=== PATIENT | female | born 1985 | race Caucasian/White ===

== ENCOUNTER → 2022-09-04 11:39 | Outpatient (CLI) | payer OTHER, SELFPAY ==
--- NOTE | 2022-09-04 11:42 | DI.MRI.S_ITS ---
PROCEDURE: MR ANKLE LT WO CON INDICATIONS: Laceration of left Achilles tendon, sequela TECHNIQUE: Noncontrast sagittal T1 spin echo and T2 fast spin echo with fat saturation, axial proton density fast spin echo and T2 fast spin echo with fat saturation, coronal T1 spin echo and T2 fast spin echo with fat saturation through the ankle/hindfoot. COMPARISON: None. FINDINGS: Image quality: Excellent. Bones and joints: No bone marrow contusions or fractures. No hindfoot coalitions. No osteochondral injuries of the talar dome. Small amount of tibiotalar and subtalar joint effusion is noted, no gross loose bodies. Medial structures: The posterior tibialis, flexor digitorum longus, and flexor hallucis longus tendons are intact. Small amount of fluid distending posterior tibialis tendon sheath is seen. The posterior tibial neurovascular bundle appears normal within the tarsal tunnel, without extrinsic mass effect. The deep layer (anterior and posterior tibiotalar ligaments) and superficial layer (tibionavicular, tibiospring, and tibiocalcaneal ligaments) of the deltoid ligament appear normal. The spring ligament components (superomedial calcaneonavicular, medioplantar oblique calcaneonavicular, and inferoplantar longitudinal ligaments) are intact. Lateral structures: The anterior talofibular, calcaneofibular, and posterior talofibular ligaments appear intact. More superiorly, the anterior and posterior tibiofibular ligaments appear intact, as is the intermalleolar ligament. The tibiofibular syndesmosis is normal in width at 2 mm or less. The peroneus longus and brevis tendons demonstrate normal location and morphology. Adjacent bony peroneal tubercle and retrotrochlear prominence are normal in size. The sinus tarsi demonstrates normal fatty signal, without edema, fibrosis, or cyst formation. Visualized sinus tarsi components (cervical ligament, interosseous talocalcaneal ligament, roots of the inferior extensor retinaculum) appear normal. The calcaneonavicular and calcaneocuboid components of the bifurcate ligament appear intact. The dorsal calcaneocuboid ligament appears intact. Anterior structures: The tibialis anterior, extensor hallucis longus, and extensor digitorum longus tendons appear intact. The dorsal talonavicular ligament appears intact. Posterior and plantar structures: Markedly thickened distal 7 cm segment of Achilles tendon approximately 2 cm from its posterior calcaneal insertion is seen and show intrasubstance T2 hyperintense signal. Maximum diameter of Achilles tendon measures 1.7 x 1.6 cm in transverse and AP diameters. No full-thickness Achilles tendon rupture. Medial and lateral bands of the plantar fascia are of normal thickness. No abductor digiti quinti muscle atrophy to suggest Meyer neuropathy. IMPRESSION: 1. Tendinosis and moderate grade intrasubstance partial-thickness tear involving distal 7 cm segment of Achilles tendon approximately 2 cm from its posterior calcaneal insertion. No full-thickness Achilles tendon rupture. Plantar fascia is within normal limits. 2. No marrow edema. No fracture or dislocation. No osteochondral injuries of talar dome. Small joint effusion, no loose bodies. 3. Low-grade tenosynovitis involving posterior tibialis tendon. Rest of the flexor tendons, extensor tendons and peroneus tendons are intact. 4. Medial and lateral ankle ligaments are intact. Dictated by: Bill Castellon M.D. on 09/04/2022 at 16:44 Approved by: Bill Castellon M.D. on 09/04/2022 at 16:52
== END ==
PROVIDERS: Referring Provider Orthopaedic Surgery Foot and Ankle Surgery; Visit Provider Orthopaedic Surgery Foot and Ankle Surgery
DX: S86.02 Laceration of Achilles tendon (principal); S86.012A Strain of left Achilles tendon, initial encounter; M65.862 Other synovitis and tenosynovitis, left lower leg; X58.XXXA Exposure to other specified factors, initial encounter
CPT/HCPCS: 73721

== ENCOUNTER 2023-03-06 08:57 | Day surgery (SDC) | payer OTHER, SELFPAY ==
[2023-02-23 11:23] VITALS: BMI 34.6
[2023-03-06] VITALS (7 sets, daily range): BP systolic 127–156; BP diastolic 77–95; PULSE 67–97; RESP 12–16; TEMP 36.2–36.8; O2SAT 99–100; BMI 33.3
[2023-03-06] MEDS: LACTATED RINGERS 1,000 ML 42 ML IV (09:26)
--- NOTE | 2023-03-06 10:42 | PM.PREOP ---
Pre-operative Note Interval Note History & Physical reviewed/Exam performed by Physician: Yes Changes to H&P: No
[2023-03-06] MEDS: CEFAZOLIN 2 GM/100 ML PREMIX 100 ML IV (11:10)
--- NOTE | 2023-03-06 11:27 | SUR.OPER ---
Prone on padded OR bed, head in foam head support, gel chest rolls, gel pad under knees, pillow under non operative leg secured with tape to field, toes free of pressure, arms secured on padded arm boards at <90 degrees abduction. Safety belt at thigh. Operative legged prepped and draped to field.
[2023-03-06] MEDS: BUPIVACAINE 0.25% W/ EPI 30 ML VIAL 60 ML INJ (11:46)
--- NOTE | 2023-03-06 11:57 | P.OP_ITS ---
Operative Date/Time/Diagnoses Date of procedure: 03/06/23 Time of procedure: 11:10 Pre-op diagnosis: Non insertional Achilles tendinopathy Laceration left Achilles tendon sequela Post-op diagnosis: same Procedure & Clinicians Procedure: Debridement Achilles tendon with secondary repair left CPT code 27787 Same procedure as scheduled: Yes Indications: Patient is a 38-year-old female with left Achilles noninsertional tendinosis and partial tearing after traumatic injury several years ago. She is failed exhaustive conservative treatment. MRI demonstrates tendinosis partial- thickness tearing midsubstance Achilles. She is been indicated for debridement and secondary repair. The risks and benefits of the procedure have been discussed with the patient and given the opportunity to ask questions. The risks of surgery include but are not limited to infection, malunion, nonunion, persistence of pain, damage to nerves and blood vessels, posttraumatic arthritis, DVT, PE, cardiopulmonary complications and . The patient expressed a thorough understanding of the risks and benefits of surgery and has elected to proceed. Consent was signed. Surgeon: Rocio Lui Click Yes if Unassisted: Yes Anesthesia Type: General and Local Operative Notes Findings: Midsubstance Achilles tendinosis proximally 2 cm above insertion involving about 50% of the tendon on the medial side this was centered at the level of the medial traumatic wound. There was also a lacerated plantaris tendon. Closure Type: primary Specimen(s): none sent Estimated Blood Loss (mL): 10 Blood products transfused: none Tourniquet time (min): 14 Procedure in detail: Patient was seen in the preoperative area the surgery site was marked informed consent confirmed. She was brought back to the operating room by the anesthesia team positioned supine. General anesthetic was administered. A well-padded thigh tourniquet was placed and the patient was then turned into the prone position on operative table. All bony prominences well padded. The left lower extremity was prepped and draped in the standard sterile fashion a formal time- out procedure was performed confirming the patient's side and site of surgery administration of appropriate preoperative antibiotic all were in agreement. Esmarch was used for exsanguination the tourniquet raised on the thigh to 250 mmHg. This stayed elevated for 14 minutes. Attention was turned to the ankle there was a palpable tendinotic area at the midsubstance of the Achilles and a old medial traumatic scar. A 4 cm incision just medial off of the Achilles tendon was taken down through the skin and subcutaneous tissue down to the level of the paratenon. Paratenon was opened more medial to be out of direct alignment with the skin incision. This taken down over the Achilles. The medial half of the Achilles tendon was palpably tendinotic. A excision was made involving approximately 50% of the tendon. Tendinotic tendon was excised and debrided this left approximately 50% of the midsubstance Achilles which was the lateral half of the tendon. This was reinforced and a secondary repair with 2. FiberWire suture. The lacerated plantaris tendon was excised along with the tendinotic Achilles scarring. A deep fasciotomy was created to aid in blood supply. Good plantar flexion with Buck test. The wound was irrigated and closed in a layered fashion with 3-0 Vicryl and the paratenon 3-0 Vicryl subcutaneous followed by 4-0 Monocryl subcutaneous and 3-0 nylon in the skin. 20 cc of 0.25% Marcaine with epinephrine was injected for local anesthetic. Sterile dressing was placed with Xeroform gauze Webril and a posterior splint in about 10? of plantar flexion. Patient was woken from anesthesia turned into the supine position onto the stretcher and taken to the recovery room in good condition. There no immediate complications from this procedure. All counts were correct Complications: none Post-operative Condition: stable Disposition: PACU Plan for aftercare: Toe-touch weight-bearing or nonweightbearing for 2 weeks. Follow up in clinic in 2 weeks for suture removal. Aspirin 325 mg daily for DVT prophylaxis while toe-touch or nonweightbearing. Keep splint dry
[2023-03-06] MEDS: OXYCODONE IR 5 MG TABLET PO (12:20)
== END 2023-03-06 13:31 | disposition home or self-care (01) ==
PROVIDERS: Referring Provider Orthopaedic Surgery Foot and Ankle Surgery; Visit Provider Orthopaedic Surgery Foot and Ankle Surgery
PROC: (CPT 27650; principal; 2023-03-06 10:15)
DX: M76.62 Achilles tendinitis, left leg (principal); S86.02 Laceration of Achilles tendon; I10 Essential (primary) hypertension
CPT/HCPCS: 27654; J0690; J1170; J2250; J2405; J3010; J3490

== ENCOUNTER → 2023-03-10 12:19 | Outpatient (CLI) | payer OTHER, SELFPAY ==
--- NOTE | 2023-03-10 | DI.US.S_ITS ---
PROCEDURE: US PERIPH VENOUS LOW EXTREM RT INDICATIONS: RIGHT CALF PAIN. RECENT SURGERY. TECHNIQUE: Real-time imaging, as well as color and pulse Doppler interrogation, were performed of the lower extremity deep veins from the inguinal ligament to the popliteal fossa, with documentation of the visualized calf veins. COMPARISON: None. FINDINGS: The common femoral, femoral, popliteal, and the visualized calf veins are normally compressible, and free of intraluminal thrombus. Color and pulse Doppler demonstrate normal phasic intraluminal flow. There is normal augmentation response to distal compression maneuver. Additionally, there are internal echoes and incomplete compressibility noted in a superficial vein in posterior superior calf IMPRESSION: No evidence of deep venous thrombosis, right lower extremity. Nonocclusive superficial venous thrombus noted in the subcutaneous posterior superior calf Approved by: Yoandy Rivera M.D. on 03/10/2023 at 12:25
== END ==
PROVIDERS: PCP Student in an Organized Health Care Education/Training Program; Referring Provider Orthopaedic Surgery Foot and Ankle Surgery; Visit Provider Orthopaedic Surgery Foot and Ankle Surgery
DX: I82.811 Embolism and thrombosis of superficial veins of right lower extremity (principal); S86.02 Laceration of Achilles tendon
CPT/HCPCS: 93971